=== PATIENT | male | born 1970 | race Caucasian/White ===

== ENCOUNTER → 2016-12-28 | Outpatient (CLI) | payer OTHER | LOC: CT 09:14 | DX: D37.030 Neoplasm of uncertain behavior of the parotid salivary glands (principal); R93.8 Abnormal findings on diagnostic imaging of other specified body structures; J32.9 Chronic sinusitis, unspecified | CPT/HCPCS: 36415; 70491; 82565; 84520; J7050; Q9962 ==

== ENCOUNTER → 2017-01-15 | Outpatient (CLI) | payer OTHER | LOC: US 09:05 | PROC: 0CB93ZX Excision of Left Parotid Gland, Percutaneous Approach, Diagnostic (ICD-10-PCS; principal; 2017-01-15) | DX: D37.030 Neoplasm of uncertain behavior of the parotid salivary glands (principal) | CPT/HCPCS: 76536; 76942 ==